=== PATIENT | male | born 1965 | race Asian ===

== ENCOUNTER 2021-05-13 15:27 | Inpatient (IN) | payer BC, SELFPAY ==
[~2021-05-13] VITALS: Ht 172.7 cm; Wt 75.0 kg
--- NOTE | 2021-05-13 15:27 | NUR ---
Placed in room 2 . Placed on lockstitch lining maker, blood pressure machine and pulse oximeter. To gown for exam. Side rails up. Report given to KADIE Bernardo.
[2021-05-13 15:33] VITALS: BP_SYST 191
--- NOTE | 2021-05-13 15:35 | NUR ---
HARJIT Flores at bedside examining patient.
--- NOTE | 2021-05-13 15:35 | NUR ---
Pt. bib by and sister in law with c/o numbness to left side, hands, face, arm and leg since 0800 this morning denies any SILVA, blurred vision or weakness. Speech clear, good/equal arm strength, no difficlty walking
[2021-05-13] MEDS ORDERED: hydrALAZINE HCL 20 MG/ML VIAL IVP ONE ×3 (15:45→19:45)
--- NOTE | 2021-05-13 15:53 | NUR ---
# 20 gauge angiocath placed to Right AC. Use of asceptic technique. Opsite placed over site. Blood return noted. Blood for lab drawn from site. Flushed with 10 cc of normal saline. No evidence of infiltration noted. Patient tolerated well.
[2021-05-13 15:57] LABS: BILIRUBIN,URINE NEGATIVE (NEGATIVE); BLOOD, URINE NEGATIVE (NEGATIVE); CLARITY/URINE CLEAR (CLEAR); COLOR,URINE YELLOW (YELLOW); GLUCOSE,URINE NEGATIVE (NEGATIVE); KETONES,URINE NEGATIVE (NEGATIVE); LEUKOCYTE ESTERASE ,URINE NEGATIVE (NEGATIVE); NITRITE, URINE NEGATIVE (NEGATIVE); PROTEIN URINE 1+ (NEGATIVE); UROBILINOGEN,URINE 0.2 (0.2-1.0)
[2021-05-13 16:02] LABS: BASOPHILS # (AUTO) 0.1 K/uL (0.0-0.2); BASOPHILS % (AUTO) 1.2 % (0.0-2.0); EOSINOPHILS # (AUTO) 0.3 K/uL (0.0-0.4); EOSINOPHILS % (AUTO) 3.7 % (0.0-4.0); HEMATOCRIT 46.5 % (36-54); HEMOGLOBIN 15.5 g/dL (14.0-18.0); LYMPHOCYTES # (AUTO) 2.8 K/uL (1.0-5.5); LYMPHOCYTES % (AUTO) 40.5 % (20.5-51.5); MEAN CORPUSCULAR HEMOGLOBIN 30 pg (27-31); MEAN CORPUSCULAR HGB CONC 33 % (32-36); MEAN CORPUSCULAR VOLUME 89 fL (79.0-98.0); MONOCYTES # (AUTO) 0.5 K/uL (0.0-1.0); MONOCYTES % (AUTO) 6.7 % (1.7-9.3); NEUTROPHILS # (AUTO) 3.3 K/uL (1.8-7.7); NEUTROPHILS % (AUTO) 47.9 % (40.0-70.0); PLATELET COUNT (AUTO) 257 K/uL (130-430); RED BLOOD CELL COUNT(AUTO) 5.25 MIL/uL (4.2-6.2); RED CELL DISTRIBUTION WIDTH 13.2 % (9.0-15.0); WHITE BLOOD COUNT (AUTO) 6.9 K/uL (4.8-10.8)
[2021-05-13 16:08] LABS: CALCIUM 9.3 mg/dL (8.4-11.0); CREATININE 1.18 mg/dL (0.55-1.30); POTASSIUM 3.6 mmol/L (3.5-5.1)
[2021-05-13 16:09] LABS: BACTERIA,URINE FEW /HPF (None Seen); MUCUS,URINE None Seen /LPF (None Seen); RBC,URINE NONE SEEN /HPF (0-3); WBC,URINE 0-3 /HPF (0-3)
--- NOTE | 2021-05-13 16:10 | NUR ---
Patient transported to radiology via wheelchair, accompanied by staff.
--- NOTE | 2021-05-13 16:10 | NUR ---
chest xray being done
[2021-05-13 16:12] LABS: INR 0.9 (0.80-1.20); PROTHROMBIN TIME 9.7 SECS (9.5-12.5)
[2021-05-13 16:14] LABS: ALBUMIN 4.3 g/dL (3.4-4.8); TOTAL BILIRUBIN 0.4 mg/dL (0.0-1.0)
[2021-05-13 16:18] LABS: BARBITURATE, URINE NEGATIVE (NEG <=200); BENZODIAZEPINE, URINE NEGATIVE (NEG <=150); CANNABINOID, URINE NEGATIVE (NEG <=50); COCAINE, URINE NEGATIVE (NEG <=150); METHAMPHETAMINES SCREEN,URINE NEGATIVE (NEG <=500); OPIATE, URINE NEGATIVE (NEG <=100); PHENCYCLIDINE SCREEN,URINE NEGATIVE (NEG <=25); UR TRICYCLIC ANTIDEPRESSANTS NEGATIVE (NEG <=300); URINE AMPHETAMINE NEGATIVE (NEG <=500); URINE METHADONE NEGATIVE (NEG <=200); URINE OXYCODONE SCREEN NEGATIVE (NEG <=100); URINE PROPOXYPHENE SCREEN NEGATIVE (NEG <=300)
--- NOTE | 2021-05-13 17:07 | NUR ---
admit orders rec'd from Dr. Smith
[2021-05-13] MEDS ORDERED: amLODIPine BESYLATE 10 MG TABLET PO ONE (17:15)
[2021-05-13] MEDS ORDERED: METF-379 PO (17:16)
--- NOTE | 2021-05-13 17:32 | NUR ---
med. rec. and pt. beloging form done
--- NOTE | 2021-05-13 18:04 | NUR ---
[place] held per Dr. Powell
[2021-05-13 18:12] VITALS: BP_SYST 167
--- NOTE | 2021-05-13 18:12 | NUR ---
RECEIVED PATIENT FROM ER VIA [id number]. PATIENT AMBULATED TO BED WITH NO ASSISTANCE. RECEIVED REPORT FROM ER NURSE. BP STILL ELEVATED WILL CALL ADMITTING MD. OTHER VITALS WNL. [id number]. NO FACIAL DROOP, ARM DRIFT. ONE SIDED WEAKNESS OR SLURRED SPEACH. WILL CONTINUE TO MONITOR.
--- NOTE | 2021-05-13 18:16 | NUR ---
Patient will be admitted to care of Admitted to tele unit. Will go to room 100A. Belongings list completed. Complete and up to date summary report printed. SBAR report to be given at bedside with opportunity for questions.
--- NOTE | 2021-05-13 18:45 | NUR ---
CALLED DR HOLLIS ORDERED TO GIVE ONE TIME DOSE NORVASC 10MG. WILL ENDORSE PATIENT TO NEXT SHIFT.
[2021-05-13] MEDS ORDERED: amLODIPine BESYLATE 10 MG TABLET ONE (18:48)
[2021-05-13 19:00] VITALS: BP_SYST 176
--- NOTE | 2021-05-13 19:15 | NUR ---
change of shift.pt.presents quiecent affect;calm,resting.family present.pt.presents elevated b/p. apprised is to present to [facility] w/in the hour. pt.presents iv access intact location rt.antecubital.no c/o pain,nausea.pt.capable to ambulate/reposition self.call light/telephone p w/in access of the pt.norvasc;10mg po x1 administered per day shift;ray.
--- NOTE | 2021-05-13 19:30 | NUR ---
present assessed the pt.i have apprised of the recent b/p status. has ordered hydralzine: 10mg ivp x1 now.
--- NOTE | 2021-05-13 19:45 | NUR ---
i have administered hydralizine:10mg ivp.per 's order.i have apprised the pt.of the medication;indication to assessed the b/p status w/in the hour.
[2021-05-13 20:00] VITALS: BP_SYST 176
[2021-05-13] MEDS ORDERED: hydrALAZINE HCL 20 MG/ML VIAL IVP PRN (20:00)
[2021-05-13] MEDS ORDERED: NITROGLYCERIN 0.4 MG TAB.SUBL SL PRN (20:00)
[2021-05-13] MEDS ORDERED: ACETAMINOPHEN 325 MG TABLET PO PRN (20:00)
--- NOTE | 2021-05-13 20:00 | NUR ---
pt.assessed;general assessment.i have apprised the pt.that snacks/beverages are available w/in the shift. no requests posited no c/o pain,nausea.general status stable.respiratory status stable@room air.call light/telephone w/in access of the pt. Addendum: 05/14/21 at 0209 by Geremias Smyth RN i have administered asa:81mg po per 's order.initial dose.
[2021-05-13] MEDS: ASPIRIN 81 MG TAB.CHEW PO SCH (20:46)
[2021-05-13] MEDS ORDERED: ASPIRIN 81 MG TAB.CHEW ONE (20:49)
[2021-05-13] MEDS: INSULIN REGULAR, HUMAN 100 UNITS/ML, 10 ML VIAL (humuLIN R) SUBCUT PRN (20:56)
[2021-05-13] MEDS: metFORMIN HCL 500 MG TABLET PO SCH (20:56)
[2021-05-13 21:00] VITALS: BP_SYST 164
--- NOTE | 2021-05-13 21:00 | NUR ---
asses the b/p status s/p hydralizine:10mg ivp administration;note b/p status elevated but decreased. Addendum: 05/14/21 at 0219 by Geremias Smyth RN blood glucose assessed value:203mg/dl.pt has refused the administration of insulin.
[2021-05-13] MEDS: LOSARTAN POTASSIUM 50 MG TABLET (COZAAR) PO SCH (21:58)
[2021-05-13 22:00] VITALS: BP_SYST 138
--- NOTE | 2021-05-13 22:00 | NUR ---
pt.assessed.i hav assessed the v/s note b/p status.i have administered cozaar;50mg po initial dose.b/p status has decreased. i have apprised the pt.of the b/p status.no c/o pain,nausea.no requests posited@this hour.call light/telephone w/in access of the pt.
--- NOTE | 2021-05-13 23:00 | NUR ---
SENT A MESSAGE TO Os[facility] BALLESTEROS IN REGARD OF CONSULTATION ENTERED BY DR. HOLLIS
--- NOTE | 2021-05-14 | NUR ---
pt.assessed.v/s assessed note b/p status wnl.no c/o pain,nausea.no requests posited@this hour.pt.capable to reposition self. call light/telephone w/in access of the pt.
[2021-05-14 00:23] VITALS: BP_SYST 146
--- NOTE | 2021-05-14 02:00 | NUR ---
pt.assessed.pt.presents quiescent affect;calm,somnolent.per flacc pain mgx pt.absent facial grimaces/body posturing.pt.capable reposition self.call light/telephone w/in access of the pt.
--- NOTE | 2021-05-14 04:00 | NUR ---
pt.assessed.pt.presents quiescent affect;calm,somnolent.per flacc pain mgx pt.absent facial grimaces/body posturing. pt.capable to reposition self.call light/telephone w/in access of the pt.
[2021-05-14] MEDS: INSULIN REGULAR, HUMAN 100 UNITS/ML, 10 ML VIAL (humuLIN R) SUBCUT PRN (05:49)
[2021-05-14 06:00] VITALS: BP_SYST 144
--- NOTE | 2021-05-14 06:00 | NUR ---
pt.assessed.v/s assessed note values b/p wnl.no c/o pain,nausea.blood glucose assessed value 160mg/dl.pt.refused the administration insulin coverage per sliding scale. i have administered cozaar 0600a dose.pt.capable to reposition self.call light/telephone w/in access of the pt.
[2021-05-14 06:35] LABS: CHOLESTEROL 215 mg/dL (<200); HDL CHOLESTEROL 56 mg/dL (>45); LDL CHOLESTEROL 141 mg/dL (<100); TRIGLYCERIDES 148 mg/dL (30-150)
--- NOTE | 2021-05-14 08:00 | NUR ---
OPENING NOTES: PATIENT EATING BREAKFAST. NO SIGNS OF ACUTE DISTRESS NOTED. FALL AND SAFETY PRECAUTION REINFORCED. CALL LIGHT WITHIN REACH.
[2021-05-14 08:05] VITALS: BP_SYST 143
[2021-05-14] MEDS ORDERED: ENOXAPARIN SODIUM 40 MG/0.4 ML SYRINGE SUBCUT SCH (09:00)
[2021-05-14] MEDS ORDERED: amLODIPine BESYLATE 10 MG TABLET PO SCH (09:00)
[2021-05-14] MEDS: LOSARTAN POTASSIUM 50 MG TABLET (COZAAR) PO SCH (10:29)
[2021-05-14] MEDS: metFORMIN HCL 500 MG TABLET PO SCH (10:29)
[2021-05-14] MEDS: ASPIRIN 81 MG TAB.CHEW PO SCH (10:30)
[2021-05-14 11:27] VITALS: BP_SYST 150
[2021-05-14] MEDS ORDERED: ATORVASTATIN 20 MG TABLET PO ONE (14:00)
[2021-05-14 15:22] VITALS: BP_SYST 150
--- NOTE | 2021-05-14 16:45 | NUR ---
AMA: PATIENT WANTS TO GO HOME AGAINST MEDICAL ADVISED. DR. DR. WUIUM INFORMED.
--- NOTE | 2021-05-15 08:32 | NUR ---
Disposition 07
[2021-05-15] MEDS ORDERED: ATORVASTATIN 20 MG TABLET PO SCH (09:00)
== END 2021-05-14 16:55 | disposition left against medical advice (07) | DRG 69 ==
LOC: SED 15:27 → STU 17:07
PROVIDERS: ADMIT Family Medicine; ATTEND Family Medicine
DX: G45.9 Transient cerebral ischemic attack, unspecified (principal); I16.9 Hypertensive crisis, unspecified; E11.9 Type 2 diabetes mellitus without complications; E78.00 Pure hypercholesterolemia, unspecified; Z53.21 Procedure and treatment not carried out due to patient leaving prior to being seen by health care provider; Z88.8 Allergy status to other drugs, medicaments and biological substances; Z79.899 Other long term (current) drug therapy; Z20.822 Contact with and (suspected) exposure to COVID-19
CPT/HCPCS: 36415; 70450-TC; 71045; 76376; 80053; 80061; 80307; 81000; 82962; 83036; 84484; 85025; 85610-TC; 85730-TC; 86886; 86900; 86901; 93005; 93306; 93880; 96374; 96376; 99291; G0378; J0360; J1650; J1815